=== PATIENT | female | born 1980 | race Two or more races ===

== ENCOUNTER 2016-11-20 12:00 | Inpatient (IN) | payer OTHER ==
[2016-11-20 16:17] VITALS: BMI 25.9
[2016-12-04] MEDS ORDERED: MIDAZOLAM HCL 2 MG/2 ML SINGLE DOSE VIAL ONE ×2 (11:11)
[2016-12-04] MEDS ORDERED: PROPOFOL 20 ML ONE ×3 (11:11)
[2016-12-04] MEDS ORDERED: EPINEPHrine/PF 1 MG/1 ML (1:1,000) AMPULE ONE (11:22)
[2016-12-04] MEDS ORDERED: LIDOCAINE HCL 1%, 10 MG/ML (20ML VIAL) ONE (11:22)
[2016-12-04] MEDS ORDERED: DEXAMETHASONE SOD PHOSPHATE/PF 10 MG/ML SDV ONE (11:22)
[2016-12-04] MEDS ORDERED: BUPIVACAINE HCL/PF 0.5% (5MG/ML) 10 ML VIAL ONE ×2 (11:23→12:26)
[2016-12-04] MEDS ORDERED: METHYLENE BLUE 1% 10 MG/1 ML VIAL ONE (11:30)
[2016-12-04] MEDS ORDERED: ROCURONIUM BROMIDE 50 MG/5 ML VIAL ONE (12:44)
[2016-12-04] MEDS ORDERED: ceFAZolin SODIUM 1 GM VIAL IVPB ONE (12:45)
[2016-12-04] MEDS ORDERED: METHYLENE BLUE 1% 10 MG/1 ML VIAL NR ONE (12:50)
[2016-12-04] MEDS ORDERED: HYDROmorphone HCL/PF 1 MG/ML VIAL (FOR PYXIS CHARGING ONLY) ONE ×2 (12:55→13:48)
[2016-12-04] MEDS ORDERED: DEXAMETHASONE SOD PHOSPHATE 4 MG/1 ML VIAL ONE (13:16)
[2016-12-04] MEDS ORDERED: ONDANSETRON 4 MG/2 ML VIAL IVPB PRN (15:11)
[2016-12-04] MEDS ORDERED: ACETAMINOPHEN 500 MG TABLET (FP) PO PRN (15:12)
[2016-12-04] MEDS ORDERED: OXYCODONE/APAP 5/325MG COMBO TABLET PO PRN ×2 (15:13→15:22)
[2016-12-04] MEDS ORDERED: HYDROmorphone *PCA* 10MG/50ML DISP.SYRIN PCA SCH ×3 (15:15→17:26)
[2016-12-04] MEDS ORDERED: PROMETHAZINE HCL 25 MG/1 ML VIAL IVPUSH PRN (17:08)
[2016-12-04] MEDS ORDERED: ONDANSETRON 4 MG/2 ML VIAL IVPUSH PRN ×2 (17:08)
[2016-12-04] MEDS ORDERED: PROMETHAZINE HCL 25 MG/1 ML VIAL IVPB PRN (17:08)
--- NOTE | 2016-12-04 17:20 | OP ---
Operative Note - Note: Operative Date: 12/04/16 Pre-Operative Diagnosis: Right Breast Ca Operation: Bilateral Immediate Breast Reconstruction after Bilateral Nipple- Sparing Mastectomies Implants: [place] Round Smooth Moderate Plus Profile Gel 350cc Left & Right Post-Operative Diagnosis: Same as Pre-op Surgeon: Praveen Taylor Anesthesia: General Operative Report Dictated: Yes
[2016-12-04] MEDS ORDERED: HYDROmorphone *PCA* 10MG/50ML DISP.SYRIN PCA ONE (17:45)
[2016-12-04] MEDS: CEPHALEXIN MONOHYDRATE 500 MG CAPSULE (UD) PO SCH (21:09)
[2016-12-04] MEDS: CEFAZOLIN (PRE-DOCKED) 50 ML IVPB SCH (21:10)
[2016-12-05] MEDS: LACTATED RINGERS SOLUTION 1,000 ML IV SCH (02:00)
[2016-12-05] MEDS: CEFAZOLIN (PRE-DOCKED) 50 ML IVPB SCH ×2 (05:36→13:00)
--- NOTE | 2016-12-05 06:39 | OP ---
DATE OF OPERATION: 12/04/2016 PREOPERATIVE DIAGNOSIS: Right breast cancer, BRCA2 positive. POSTOPERATIVE DIAGNOSIS: Right breast cancer, BRCA2 positive. PROCEDURE: Bilateral nipple-sparing mastectomy and right sentinel lymph node biopsy. SURGEON: Leann Barker MD DESK MONITOR: and medical student Tomás ANESTHESIA: General, paravertebral block. ANESTHESIOLOGIST: Apolonia Plummer MD ESTIMATED BLOOD LOSS: 100 mL. DRAINS: None. COMPLICATIONS: None. DISPOSITION: Stable at the end of the procedure. INDICATIONS: Patient had presented with a palpable lump in the upper outer right breast. On ultrasound and mammogram, this looked suspicious. She had a needle biopsy that showed an invasive carcinoma. I sent her for genetic testing given her young age and this came back as BRCA2 positive. We did an MRI as well and no other area was seen. However, given her genetic predisposition we discussed doing prophylactic mastectomy on the left and a mastectomy on the right. After much discussion, the decision was to go ahead with bilateral nipple-sparing mastectomy and a right sentinel node biopsy. She met with Dr. Taylor to discuss reconstruction. PROCEDURE IN DETAIL: Patient was brought to [facility] in [place] and taken down to Nuclear Medicine, where technetium level sulfur colloid was injected by the radiologist into the right breast and then brought up to the operating room. After paravertebral block she was brought into the operating room and after induction of general anesthesia and IV antibiotics 2.5 mL of methylene blue diluted with 2.5 mL of injectable saline was injected into the right subareolar plexus by me. The breast was then massaged for 5 minutes. Next, both breasts and axillae were prepped and draped in the usual sterile fashion. A 4-cm incision was made in the right axilla and carried down to the clavipectoral fascia to identify a bunch of lymph nodes together that were blue and hot. These were taken as right axillary sentinel node number 1, blue and hot, and sent for permanent section. There was no other blue dye radioactivity within the right axilla or pathologically significant lymph nodes. Therefore, once hemostasis was assured the right mastectomy was performed. An inframammary incision was made that was premarked by Dr. Taylor, and the superior flap was created up to the clavicle. The breast was then reflected off the muscle. Care was taken to preserve the nipple skin. This was tagged with a short stitch at the nipple and a long stitch at the lateral edge of the mastectomy. This was sent as the right mastectomy. I did take some of the tissue behind the right nipple and sharply incised it with a Metzenbaum scissor and this was sent to Pathology as tissue behind right nipple. Once hemostasis was assured and I was satisfied with the resection, then gowns, gloves, and instruments were changed and the left mastectomy was performed. Again, an inframammary incision was made and the flap was raised anteriorly superiorly to take the breast off the skin up to the clavicle. The breast was then reflected off the pectoralis muscle, leaving the nipple intact. The left mastectomy was tagged with a long stitch lateral and a short stitch at the nipple. This was sent to Pathology for permanent section. Hemostasis was assured with electrocautery. She tolerated the procedure well and left with Dr. Taylor to finish the reconstruction part of the procedure. Susan [id number]
--- NOTE | 2016-12-05 07:05 | OP ---
DATE OF OPERATION: 12/04/2016 PREOPERATIVE DIAGNOSIS: Right breast cancer. POSTOPERATIVE DIAGNOSIS: Right breast cancer. PROCEDURE PERFORMED: Bilateral immediate breast reconstruction after bilateral nipple-sparing mastectomies. SURGEON: Praveen Taylor MD ANESTHESIA: General. DESCRIPTION OF PROCEDURE: The patient was on the operating table at the conclusion of bilateral nipple-sparing mastectomies performed by Dr. Barker. These procedures were performed through bilateral inframammary incisions, which were marked with the patient in the standing position 1 day preoperatively. The right breast was addressed first, and the right subpectoral plane was created using electrocautery. Fiber Optic Lighted Retractor was used for assistance, and dissection continued superiorly up to the level of approximately the 2nd rib. The mastectomy dissection continued laterally beyond the anterior axillary line, so skin flap was sutured back in place to the lateral chest wall to prevent lateral migration of the implant. A medium-sized perforated Alloderm sheath was brought onto the field and soaked for approximately 5 minutes. After which, a straighter edge was sutured to the inferolateral border of the pectoralis major muscle, keeping the cut dermal side of the Alloderm facing superficially. The Alloderm was sutured in a continuous horizontal mattress fashion using 2-0 Vicryl suture to this superolateral edge. The implant selected was a [place] 350-mL Moderate Plus Profile gel implant, which was placed after gloves and gowns were changed. This was placed under the Alloderm and pectoralis major muscle layer, and the Alloderm was then reflected over the inferolateral portion of theimplant. The Alloderm was then trimmed to size and sutured to the inframammary fold using 2-0 Vicryl suture in interrupted horizontal mattress fashion. This was sutured around the lateral portion of the implant as well to restrict its lateral motion. Jozef-Aguero drain was inserted through a separate stab incision in the anterior axillary line and directed superiorly over the pectoralis major muscle within the mastectomy cavity. The drain was sutured in place with2-0 silk suture, and the inframammary wound was closed in layered fashion. Deep tissues were closed with No. 3-0 Biosyn suture in interrupted buried fashion, and skin was closed with a deep dermal layer of 4-0 V-Loc 90 suture. A similar procedure was performed on the left breast and a similar implant was selected. This implant was selected to be approximately 100 mL larger than the patients original breast volume. In addition to the right axillary incision that was used for sentinel node dissection was closed in layered fashion. Deep tissues were closed with No. 3-0 Biosyn suture in interrupted buried fashion, and skin was closed with No. 5-0 nylon suture in simple interrupted fashion. Wounds were then further secured with Steri-Strips, and sterile dressings were applied and secured with a surgical bra. The patient was then awoken from anesthesia without any difficulty and was taken from the operating room to the recovery room in satisfactory condition having tolerated the procedure well. Susan [id number] cc:: Leann Barker MD
--- NOTE | 2016-12-05 08:36 | PN ---
Progress Note (short form) - Note Progress Note: Anesthesia POD#1 S/P B/L mastectomy with reconstruction under GA and Pectoral Block,Dilaudid HOSPICE CONSULTANT VSS,pain is manageable,orals are started,no N/V,using HOSPICE CONSULTANT for few times. Decided to discontinue it and take oral pain meds. A/P Doing well. Discontinue HOSPICE CONSULTANT. Katia Peña..
[2016-12-05] MEDS: CEPHALEXIN MONOHYDRATE 500 MG CAPSULE (UD) PO SCH ×2 (09:05→21:19)
[2016-12-05] MEDS: oxyCODONE HCL 5 MG TABLET PO PRN ×3 (09:18→21:37)
[2016-12-05] MEDS: ACETAMINOPHEN 325 MG TABLET (FP) PO PRN ×3 (09:23→21:36)
--- NOTE | 2016-12-05 12:40 | PN ---
Progress Note (short form) - Note Progress Note: POD 1 s/p Bl mastectomy Doing well, Afebrile, VSS JPs- in place. functioning D/C [employer] SAL[employer]OCIATE ambulate plan discharge tomorrow
[2016-12-05] MEDS: DOCUSATE SODIUM 100 MG CAPSULE (FP) PO SCH (21:54)
[2016-12-06] MEDS: LACTATED RINGERS SOLUTION 1,000 ML IV SCH (04:37)
[2016-12-06 06:17] VITALS: BP 100/60; TEMP 98.4
[2016-12-06] MEDS: DOCUSATE SODIUM 100 MG CAPSULE (FP) PO SCH ×2 (06:23→13:48)
[2016-12-06] MEDS: oxyCODONE HCL 5 MG TABLET PO PRN ×2 (07:42→13:48)
[2016-12-06] MEDS: ACETAMINOPHEN 325 MG TABLET (FP) PO PRN ×2 (07:43→13:48)
[2016-12-06] MEDS: CEPHALEXIN MONOHYDRATE 500 MG CAPSULE (UD) PO SCH (11:30)
[2016-12-06 14:13] VITALS: PULSE 81
--- NOTE | 2016-12-09 08:18 | PATH ---
Surgical Pathology Report Patient Name: CARL RAHMAN [facility]. Rec. #: [id number] /Age/Gender: 1980 (Age: 36) / F Account: [id number] Location: [address] [place] [address] Taken: 12/04/2016 Received: 12/05/2016 Reported: 12/26/2016 Physicians: Leann Barker M.D. Specimen(s) Received A: RIGHT AXILLARY SENTINEL LYMPH NODE #1 B: RIGHT BREAST MASTECTOMY C: TISSUE BEHIND RIGHT NIPPLE D: LEFT BREAST MASTECTOMY Clinical History Right invasive, left prophylactic Final Diagnosis A. SENTINEL LYMPH NODE #1, RIGHT AXILLARY, BIOPSY: ONE OF THREE LYMPH NODES POSITIVE FOR METASTATIC CARCINOMA (1/3). SIZE OF LARGEST METASTATIC DEPOSITS: 0.6 CM. EXTRANODAL EXTENSION: NOT IDENTIFIED. B. BREAST, RIGHT, NIPPLE SPARING MASTECTOMY: MULTIFOCAL INVASIVE DUCTAL CARCINOMA WITH LOBULAR GROWTH PATTERN, MODERATELY DIFFERENTIATED (MIRTA HISTOLOGIC SCORE OF 7: TUBULAR FORMATION 3 OF 3; NUCLEAR PLEOMORPHISM 2 OF 2; MITOTIC RATE 2 OF 3). TUMOR FOCALITY AND SIZE: 4 FOCI; 1.3 CM, 1.2 CM, 0.5 CM, AND 0.3 CM; ALL FOCI ARE IN THE UPPER OUTER QUADRANT. FOCI OF DUCTAL CARCINOMA IN SITU (DCIS), INTERMEDIATE GRADE, SOLID AND CRIBRIFORM TYPES WITH FOCAL NECROSIS. DCIS EXTENT: DCIS IS MINOR (<25%); ASSOCIATED WITH INVASIVE CARCINOMA. SURGICAL RESECTION MARGINS: NEGATIVE FOR INVASIVE CARCINOMA OR DCIS; CLOSEST RESECTION MARGIN (ANTERIOR SOFT TISSUE) >1.0 CM AWAY FROM INVASIVE CARCINOMA OR DCIS. PRIOR BIOPSY SITE CHANGES IDENTIFIED. LYMPHOVASCULAR INVASION: PRESENT. PERINEURAL INVASION: NOT DEFINITIVELY IDENTIFIED. SURROUNDING BREAST TISSUE: FIBROCYSTIC CHANGE WITH FOCAL ADENOSIS, DUCT DILATATION, FOCAL CYST FORMATION AND STROMAL FIBROSIS WITH ASSOCIATED FOCAL MCROCALCIFICATIONS. PATHOLOGIC STAGING: mpT1c pN1a(sn) (ALSO REFER TO CHEKLIST BELOW). RECEPTOR STATUS: REFER TO CHECKLIST BELOW. Comment: Immunostain for e-cadherin was performed and interpreted on the prior biopsy ([id number], A and B) with the strong membranous staining in the tumor cells supporting ductal phenotype. C. TISSUE BEHIND RIGHT NIPPLE, BIOPSY: BENIGN BREAST TISSUE. D. BREAST, LEFT, PROPHYLACTIC NIPPLE SPARING MASTECTOMY: BENIGN BREAST TISSUE WITH FIBROCYSTIC CHANGE WITH FOCAL USUAL DUCT HYPERPLASIA, APOCRINE METAPLASIA AND STROMAL FIBROSIS. Comments Breast Invasive Carcinoma: Surgical Pathology Cancer Case Summary Based on AJCC/UICC TNM, 7th edition Procedure _x_ Nipple sparing mastectomy Lymph Node Sampling _x_ Cedar lymph nodes Specimen Laterality _x_ Right Tumor Size: Size of Largest Invasive Carcinoma Greatest dimension of largest focus of invasion over 1 mm: 1.3 cm Tumor Focality Multiple foci of invasive carcinoma Number of foci: 4 Sizes of individual foci: 1.3 cm, 1.2 cm, 0.5 cm, 0.3 cm Macroscopic and Microscopic Extent of Tumor Skin _x_ No skin present Nipple _x_ Not applicable (excisions less than total mastectomy) Skeletal Muscle _x_ No skeletal muscle present Ductal Carcinoma In Situ (DCIS) _x_ DCIS is present _x_ as a minor component (< 25% of tumor) Histologic Type of Invasive Carcinoma : _x_ Invasive ductal carcinoma with lobular growth pattern Histologic Grade: ([place] Histologic Score) Tubular Differentiation _x_ Score 3 Nuclear Pleomorphism _x_ Score 2 Mitotic Rate _x_ Score 2 Overall Grade _x_ Grade 2: scores of 6 or 7 (moderately differentiated) Margins _x_ Margins uninvolved by invasive carcinoma Distance from closest margin: >1.0 cm Specify margin: anterior soft tissue _x_ Margins uninvolved by DCIS Distance from closest margin: >1.0 cm Specify margin: anterior soft tissue Lymph-Vascular Invasion _x_ Present Lymph Nodes Total number of lymph nodes examined (sentinel and nonsentinel): 3 Number of sentinel lymph nodes examined: 3 Number of lymph nodes with macrometastases ( > 2 mm): 1 Number of lymph nodes with micrometastases (>0.2 mm to 2 mm and/or >200cells):0 Number of lymph nodes with isolated tumor cells (=0.2 mm and =200 cells): 0 Size of largest metastatic deposit (if present): 0.6 cm Extranodal Extension _x_ Not applicable Pathologic Staging (pTNM) Primary Tumor (Invasive Carcinoma): mpT1c Regional Lymph Nodes: pN1a(sn) Distant Metastasis (pM): not applicable Biomarker Studies Results of ER and IN studies performed on prior biopsy ([id number]) block A1 at [facility] are as follows: ER (clone [id number] mouse monoclonal antibody by [employer]): >95% nuclear staining with strong intensity (Positive). IN (clone16 mouse monoclonal antibody by [employer]): >95% nuclear staining with strong to moderate intensity (Positive). Results of Her2 (IHC) & Ki-67 studies performed on prior biopsy ([id number]) at [place], [place] () are as follows: Her2 IHC (EP3 from [employer], formerly known as [id number], using [employer] Polymer Refine detection kit): 1+ (Negative) Ki67: 15-20% ((intermediate proliferation index Positive and negative controls (internal if applicable) show appropriate results. Formalin fixation and cold ischemic times are within current ASCO/CAP recommendations for ER, IN and Her2 testing. Electronically Signed Conrad Ndiaye M.D. Gross Description A. Received in formalin, labeled "right axillary sentinel lymph node #1 hot and blue" is a 3.3 x 2.5 x 1.2 cm portion of yellow, lobulated adipose tissue. Sectioning reveals 3 peng blue, irregular lymph nodes ranging from 0.4 x 0.4 x 0.4 cm to 0.8 x 0.5 x 0.4 cm. The lymph nodes are entirely submitted in 3 cassettes as follows: 1-3-one whole bisected lymph node each. B. Received in formalin, labeled "right mastectomy" is a 364 gram, 16.0 x 13.0 x 3.0 cm right mastectomy specimen with a short suture marking the nipple and a long suture marking the lateral aspect of the specimen, per the surgeon. There is no skin or nipple present. The deep margin is inked black and the anterior soft tissue margin is inked blue. The specimen is serially sectioned from lateral to medial. Sectioning reveals a 1.2 x 0.8 x 0.7 cm peng, indurated mass in the upper outer quadrant (UOQ). The mass is at 1.0 cm from the anterior soft tissue margin and 1.3 cm from the deep margin. There is an additional, 1.1 x 0.7 x 0.4 cm focus of firm fibrous tissue in the upper outer quadrant (UOQ), separate from the mass. This focus is at 1.2 cm from the deep margin. The remaining breast parenchyma displays foci of dense white fibrous tissue. Electrician Master sections are submitted in 15 cassettes as follows: 1-2-one full face section each of UOQ mass with anterior soft tissue margin; 3-UOQ mass with deep margin; 4-uninvolved UOQ tissue; 5-6-7 separate UOQ focus of firm fibrous tissue with deep margin; 8-9-upper inner quadrant; 10-11-lower inner quadrant; 39-09-sddjgtgpoxmi tissue; 14-anterior soft tissue margin; 15-deep margin. Time to fixation: <1h Total formalin fixation time: ~24 hours C. Received in formalin, labeled "tissue behind right nipple" are 5 peng fragments of fibroadipose tissue ranging from 0.2-0.6 cm in greatest dimension. The specimens are submitted in toto in one cassette. D. Received in formalin, labeled "left mastectomy" is a 410 gram, 17.5 x 14.0 x 3.0 cm. left mastectomy specimen with a short suture marking the nipple and a long suture marking the lateral aspect of the specimen, per the surgeon. There is no skin or nipple present. The deep margin is inked black and the anterior soft tissue margin is inked blue. The specimen is serially sectioned from medial to lateral. Sectioning reveals multifocal dense white fibrous tissue. No definitive masses are identified. Electrician Master sections are submitted in 13 cassettes as follows: 1-2-upper outer quadrant; 3-4-lower outer quadrant; 5-6-upper inner quadrant; 7-9-lower inner quadrant; 59-04-xwkanenssybx tissue; 12-anterior soft tissue margin; 13-deep margin. Time to fixation: <1h Total formalin fixation time: ~24 hours 12/05/201612/05/2016
== END 2016-12-06 14:44 | disposition home or self-care (01) | DRG 362 ==
LOC: JSAMEDAYSX 12-04 05:07 → J6S 12-04 19:52
PROVIDERS: ADMIT Surgery; ATTEND Surgery
PROC: 0HTV0ZZ Resection of Bilateral Breast, Open Approach (ICD-10-PCS; principal; 2016-12-04 12:00)
PROC: 07B50ZX Excision of Right Axillary Lymphatic, Open Approach, Diagnostic (ICD-10-PCS; 2016-12-04 12:00)
PROC: 0HUV0JZ Supplement Bilateral Breast with Synthetic Substitute, Open Approach (ICD-10-PCS; 2016-12-04 12:00)
DX: C50.911 Malignant neoplasm of unspecified site of right female breast (principal)
CPT/HCPCS: 78195-TC; 84703; 88305-TC; 88307-TC; 94760; A9541

== ENCOUNTER 2017-01-16 07:49 | Day surgery (SDC) | payer OTHER ==
[2017-01-13 17:55] VITALS: BMI 25.9
[~2017-01-16 07:49] MED LIST: LIDOCAINE HCL 1%, 10 MG/ML (20ML VIAL) IJ ONE
[2017-01-16] MEDS ORDERED: LIDOCAINE HCL 1%, 10 MG/ML (20ML VIAL) ONE (09:18)
[2017-01-16] MEDS ORDERED: PROPOFOL 20 ML ONE (09:21)
[2017-01-16] MEDS ORDERED: MIDAZOLAM HCL 2 MG/2 ML SINGLE DOSE VIAL ONE (09:21)
[2017-01-16] MEDS ORDERED: ceFAZolin SODIUM 1 GM VIAL IVPB ONE (09:54)
[2017-01-16] MEDS ORDERED: ceFAZolin SODIUM 1 GM VIAL ONE (10:06)
[2017-01-16] MEDS ORDERED: DEXAMETHASONE SOD PHOSPHATE 4 MG/1 ML VIAL ONE (10:06)
[2017-01-16] MEDS ORDERED: oxyCODONE HCL 5 MG TABLET PO PRN (10:24)
[2017-01-16] MEDS ORDERED: IBUPROFEN 800 MG/8 ML IJ IVPB PRN (10:24)
[2017-01-16] MEDS ORDERED: ONDANSETRON 4 MG/2 ML VIAL IVPUSH PRN (10:24)
[2017-01-16] MEDS ORDERED: LACTATED RINGERS SOLUTION 1,000 ML IV SCH (10:30)
[2017-01-16] MEDS ORDERED: IBUPROFEN 800 MG/8 ML IJ IVPB ONE (11:01)
[2017-01-16 12:55] VITALS: TEMP 98.2
[2017-01-16 16:19] VITALS: BP 103/64; PULSE 72
--- NOTE | 2017-01-19 15:39 | PATH ---
Surgical Pathology Report Patient Name: CARL RAHMAN Med. Rec. #: [id number] /Age/Gender: 1980 (Age: 37) / F Account: [id number] Location: [facility] SUR[facility] Taken: 01/16/2017 Received: 01/16/2017 Reported: 01/19/2017 Physicians: Leann Barker M.D. Specimen(s) Received RIGHT AXILLARY CONTENTS Clinical History Right breast cancer Final Diagnosis LYMPH NODES, RIGHT AXILLARY CONTENTS, DISSECTION: 17 REACTIVE LYMPH NODES NEGATIVE FOR METASTATIC CARCINOMA (0/17). FAT NECROSIS AND FOCAL CHANGES CONSISTENT WITH PRIOR BIOPSY FOR SURGERY SITE IDENTIFIED. Comment: The lymph nodes show reactive follicular hyperplasia and dermatopathic lymphadenopathy. Immunohistochemical stain for Ae1/Ae3 performed and interpreted on block #3 at [facility] is negative supporting the interpretation above. Electronically Signed Conrad Ndiaye M.D. Gross Description Received in formalin labeled "right axillary contents," is a 6.0 x 4.8 x 1.0 cm aggregate of yellow, lobulated adipose tissue. Sectioning reveals multiple peng, irregular lymph nodes. The lymph nodes are entirely submitted in 7 cassettes as follows: 1-4-one whole bisected lymph node each; 8-6-apodtwvb lymph nodes. 01/16/201701/16/2017
--- NOTE | 2017-01-19 20:27 | OP ---
DATE OF OPERATION: 01/16/2017 PREOPERATIVE DIAGNOSIS: Right breast cancer with positive right axillary lymph node. POSTOPERATIVE DIAGNOSIS: Right breast cancer with positive right axillary lymph node. PROCEDURE: Right completion axillary node dissection. SURGEON: Leann Barker M.D. ANESTHESIA: General. ESTIMATED BLOOD LOSS: Minimal. COMPLICATIONS: None. DISPOSITION: Stable. INDICATION FOR PROCEDURE: patient had a bilateral nipple sparing mastectomy and a right central node biopsy that noted 1/3 positive lymph nodes. completion node dissection because of the positive lymph node and the lymph vascular invasion at mastectomy. The procedure was discussed with all the questions answered. PROCEDURE IN DETAIL: Patient brought to [facility] and after induction of general anesthesia and IV antibiotics, the right axilla was prepped and draped in the usual sterile fashion. The prior incision was sharply re-opened and the axilla was entered through the fascia. A completion lymph node dissection was performed. Care was taken to preserve the long thoracic and thoracodorsal neurovascular bundles. The entire axillary content was sent to pathology for permanent section as right axillary contents. Once hemostasis was assured with hemoclips and cautery, through a separate stab wound a 10-mm ANGEL drain was placed into the right axilla, secured to the skin with a nylon stitch. Once hemostasis was assured, the incision was closed in routine fashion with interrupted 2-0 Vicryl running 4-0 Biosyn. A sterile dressing with Tegaderm with 4x4s was applied as well as a mammary binder. She tolerated procedure well, was taken to recovery in good condition, extubated on the operating room table and then taken to recovery in good condition. Susan [id number]
== END 2017-01-16 16:00 | disposition home or self-care (01) ==
LOC: JASU-SURG 07:49
PROVIDERS: ATTEND Surgery
PROC: 07T50ZZ Resection of Right Axillary Lymphatic, Open Approach (ICD-10-PCS; principal; 2017-01-16 09:00)
DX: C50.911 Malignant neoplasm of unspecified site of right female breast (principal); R59.0 Localized enlarged lymph nodes
CPT/HCPCS: 84703; 88307-TC; 88342-TC; 94760

== ENCOUNTER 2018-10-01 16:10 | Emergency (ER) | payer OTHER ==
--- NOTE | 2018-10-01 16:28 | PDOC ---
Rapid Medical Evaluation Time Seen by Provider: 10/01/18 16:27 Medical Evaluation: Allergies Allergy/AdvReac Type Severity Reaction Status Date / Time No Known Drug Allergies Allergy Verified 10/01/18 16:26 10/01/18 16:27 I have performed a brief in-person evaluation of this patient. The patient presents with a chief complaint of:cough congestion 2 weeks . breast cancer 2 yrs ago with mastectomy. on tamoxifen. Pertinent physical exam findings:none I have ordered the following:none The patient will proceed to the ED for further evaluation. Discharge Disposition - Referrals Referrals: Rachael Montalvo [Primary Care Provider] - - Patient Instructions - Post Discharge Activity
[2018-10-01 16:30] VITALS: BP 100/50; PULSE 71; TEMP 98.2; BMI 24.9
--- NOTE | 2018-10-01 16:36 | PDOC ---
History of Present Illness - General Chief Complaint: Cold Symptoms Stated Complaint: Cold Symptoms Time Seen by Provider: 10/01/18 16:27 History Source: Patient Exam Limitations: No Limitations - History of Present Illness Initial Comments: 10/01/18 16:33 Best Contact: PCP:- Pmhx:2016: Right sided breast CA, currently on tamoxifen Pshx: 12/2017Bilateral mastectomy Allergies: NO KNOWN DRUG ALLERGIES Social Hx: Cigarettes/ denies Alcohol/ denies Drugs/denies 10/01/18 17:05 38-year-old female presents to the ER complaining of productive cough with greenish phlegm, subjective fever and chills 2 weeks without nausea/vomiting, diarrhea, headache, dizziness, lightheadedness, facial pains, rhinorrhea, nasal congestion, earache, sore throat, difficulty swallowing, neck pain/stiffness, back pains, chest pain, shortness of breath, abdominal pains, flank pains, urinary symptoms. Patient states she denied take anything for her symptoms. Patient is currently on tamoxifen for her right sided breast CA which was diagnosed 2 years ago and had a bilateral mastectomy on December 2017. Patient refuses any images Past History - Past Medical History Allergies/Adverse Reactions: Allergies Allergy/AdvReac Type Severity Reaction Status Date / Time No Known Drug Allergies Allergy Verified 10/01/18 16:26 Home Medications: Ambulatory Orders Tamoxifen Citrate 10 mg PO DAILY 10/01/18 Anemia: No Asthma: No Cancer: Yes (BREAST) Cardiac Disorders: No CVA: No COPD: No CHF: No Dementia: No Diabetes: No GI Disorders: No Disorders: No HTN: No Hypercholesterolemia: Yes (NO MEDS) Liver Disease: No Seizures: No Thyroid Disease: No - Surgical History Abdominal Surgery: No Appendectomy: No Cardiac Surgery: No Cholecystectomy: No Lung Surgery: No Neurologic Surgery: No Orthopedic Surgery: No - Suicide/Smoking/Psychosocial Hx Smoking Status: No Smoking History: Never smoked Have you smoked in the past 12 months: No Number of Cigarettes Smoked Daily: 0 Hx Alcohol Use: No Drug/Substance Use Hx: No Substance Use Type: None Hx Substance Use Treatment: No Review of Systems - Review of Systems Able to Perform ROS?: Yes Comments:: 10/01/18 16:34 CONSTITUTIONAL: +subjective fever, chills, Absent: diaphoresis, generalized weakness, malaise, loss of appetite HEENT: Absent: rhinorrhea, nasal congestion, throat pain, throat swelling, difficulty swallowing, mouth swelling, ear pain, eye pain, visual Changes CARDIOVASCULAR: Absent: chest pain, loss of consciousness, palpitations, irregular heart rate, peripheral edema RESPIRATORY: +cough Absent:shortness of breath, dyspnea with exertion, orthopnea, wheezing, stridor , hemoptysis GASTROINTESTINAL: Absent: abdominal pain, abdominal distension, nausea, vomiting, diarrhea, constipation, melena, hematochezia GENITOURINARY: Absent: dysuria, frequency, urgency, hesitancy, hematuria, flank pain, genital pain MUSCULOSKELETAL: Absent: myalgia, arthralgia, joint swelling SKIN: Absent: rash, itching, pallor HEMATOLOGIC/IMMUNOLOGIC: Absent: easy bleeding, easy bruising, lymphadenopathy, frequent infections ENDOCRINE: Absent: unexplained weight gain, unexplained weight loss, heat intolerance, cold intolerance NEUROLOGIC: Absent: headache, focal weakness or paresthesias, dizziness, unsteady gait, seizure, mental status changes, bladder or bowel incontinence Is the patient limited Kazakh proficient: No *Physical Exam - Vital Signs Last Vital Signs Temp Pulse Resp BP Pulse Ox 98.2 F 71 18 100/50 L 99 10/01/18 16:28 10/01/18 16:28 10/01/18 16:28 10/01/18 16:28 10/01/18 16:28 - Physical Exam Comments: 10/01/18 16:35 GENERAL: Well developed, well nourished. Awake and alert. No acute distress. HEENT: Normocephalic, atraumatic. PERRLA, EOMI. No conjunctival pallor. Sclera are non- icteric. Moist mucous membranes. Oropharynx is clear. NECK: Supple. Full ROM. No JVD. Carotid pulses 2+ and symmetric, without bruits. No thyromegaly. No lymphadenopathy. CARDIOVASCULAR: Regular rate and rhythm. No murmurs, rubs, or gallops. Distal pulses are 2+ and symmetric. PULMONARY: No evidence of respiratory distress. Lungs clear to auscultation bilaterally. No wheezing, rales or rhonchi. ABDOMINAL: Soft. Non-tender. Non-distended. No rebound or guarding. No organomegaly. Normoactive bowel sounds. MUSCULOSKELETAL Normal range of motion at all joints. No bony deformities or tenderness. No CVA tenderness. EXTREMITIES: No cyanosis. No clubbing. No edema. No calf tenderness. SKIN: Warm and dry. Normal capillary refill. No rashes. No jaundice. NEUROLOGICAL: Alert, awake, appropriate. Cranial nerves 2-12 intact. No deficits to light touch and temperature in face, upper extremities and lower extremities. No motor deficits in the in face, upper extremities and lower extremities. Normoreflexic in the upper and lower extremities. Normal speech. Toes are down- going bilaterally. Gait is normal without ataxia. PSYCHIATRIC: Cooperative. Good eye contact. Appropriate mood and affect. Moderate Sedation - Procedure Monitoring Vital Signs: Procedure Monitoring Vital Signs Temperature 98.2 F 10/01/18 16:28 Pulse Rate 71 10/01/18 16:28 Respiratory Rate 18 10/01/18 16:28 Blood Pressure 100/50 L 10/01/18 16:28 O2 Sat by Pulse Oximetry (%) 99 10/01/18 16:28 ED Treatment Course - RADIOLOGY Radiograph Interpretation: 10/01/18 16:35 CXR: 2V *DC/Admit/Observation/Transfer Diagnosis at time of Disposition: Viral syndrome - Discharge Dispostion Disposition: HOME Condition at time of disposition: Stable Decision to Admit order: No - Referrals Referrals: Rachael Montalvo [Primary Care Provider] - - Patient Instructions Printed Discharge Instructions: DI for Viral Upper Respiratory Infection -- Adult Additional Instructions: Increase fluids It is important for you to actually take your temperature to see if you have a fever Tylenol alternating with Motrin every 6 hours as needed for pain or fever Follow with your doctor next week Return to the ER for severe/persistent or worsening symptoms Since you do not want to get a chest x-ray, I will send a prescription to your pharmacy. If the symptoms gets worse, he can start taking the antibiotics. - Post Discharge Activity
[2018-10-01] MEDS ORDERED: KETOROLAC TROMETHAMINE 60 MG/2 ML VIAL IM ONE (16:42)
== END 2018-10-01 17:17 | disposition home or self-care (01) ==
LOC: JERFT 16:10
DX: B97.89 Other viral agents as the cause of diseases classified elsewhere (principal); J06.9 Acute upper respiratory infection, unspecified; Z85.3 Personal history of malignant neoplasm of breast; Z90.13 Acquired absence of bilateral breasts and nipples
CPT/HCPCS: 99281-25

== ENCOUNTER 2023-01-19 10:50 | Emergency (ER) | payer OTHER ==
[2023-01-19 11:01] VITALS: BMI 24.7
[2023-01-19] MEDS ORDERED: ONDANSETRON 4 MG/2 ML VIAL IVPUSH ONE (11:43)
[2023-01-19] MEDS ORDERED: SODIUM CHLORIDE 0.9% 1000 ML INFUS.BAG IV ONE (11:43)
[2023-01-19] MEDS ORDERED: ACETAMINOPHEN 1000 MG/100 ML BAG IVPB ONE (11:43)
[2023-01-19] MEDS ORDERED: FAMOTIDINE 20 MG/50 ML IVPB 20 MG/50 ML MG IVPB ONE ×2 (11:43→12:13)
[2023-01-19] MEDS ORDERED: ACETAMINOPHEN INJECTION 100 ML IVPB ONE (12:12)
[2023-01-19] MEDS ORDERED: ONDANSETRON 4 MG/2 ML VIAL ONE (12:12)
[2023-01-19 12:13] LABS: BASO % 1.3 % (0-2.0); EOS % 0.9 % (0-4.5); HEMATOCRIT 39.4 % (32.4-45.2); HEMOGLOBIN 14.1 GM/dL (10.7-15.3); LYMPH % 19.7 % (8-40); MCH 32.3 pg (25.7-33.7); MCHC 35.8 g/dl (32.0-36.0); MEAN CELL VOLUME 90.2 fl (80-96); MEAN PLT VOLUME 8.1 fl (7.5-11.1); MONO % 6.2 % (3.8-10.2); NEUT % 71.9 % (42.8-82.8); PLATELET COUNT 251 10^3/uL (134-434); RBC 4.36 M/mm3 (3.60-5.2)
[2023-01-19 12:29] LABS: ACTIVATED PTT 30.5 SECONDS (25.2-36.5); INR 1.13 (0.83-1.09); PROTHROMBIN TIME (PATIENT) 13.1 SEC (9.7-13.0)
[2023-01-19 12:39] LABS: ALBUMIN 3.8 g/dl (3.4-5.0); BLOOD UREA NITROGEN 15.9 mg/dL (7-18); CALCIUM 9.4 mg/dL (8.5-10.1)
[2023-01-19 12:42] LABS: CREATININE 0.5 mg/dL (0.55-1.3)
[2023-01-19 12:44] LABS: TOT PROT 7.8 g/dl (6.4-8.2)
[2023-01-19] MEDS ORDERED: LACTATED RINGERS SOLUTION 1000 ML INFUS.BAG IV ONE ×2 (13:30→13:31)
[2023-01-19 14:28] LABS: EPI CELLS 24 /uL (0-25.1); HYALINE CASTS 3 /uL (0-3.1); URINE APPEARANCE CLEAR; URINE BACTERIA 40 /uL (0-1359); URINE BILIRUBIN 1+ (NEGATIVE); URINE COLOR DK YELLOW; URINE GLUCOSE (UA) NEGATIVE (NEGATIVE); URINE KETONE 3+ (NEGATIVE); URINE LEUK ESTERASE NEGATIVE (NEGATIVE); URINE NITRITE NEGATIVE (NEGATIVE); URINE PROTEIN 1+ (NEGATIVE); URINE RBC 44 /uL (0-23.9); URINE WBC 39 /uL (0-25.8)
[2023-01-19] MEDS ORDERED: AMOX TR/POT CLAV 875MG/125MG TABLETS (FP) PO ONE (14:37)
[2023-01-19] MEDS ORDERED: AMOX TR/POT CLAV 875MG/125MG TABLETS (FP) ONE (14:44)
[2023-01-19 15:55] VITALS: BP 113/60; PULSE 68; RESP 16; TEMP 98.5
== END 2023-01-19 15:47 | disposition home or self-care (01) ==
LOC: JER 10:50
PROC: 3E033GC Introduction of Other Therapeutic Substance into Peripheral Vein, Percutaneous Approach (ICD-10-PCS; principal; 2023-01-19)
PROC: 3E033NZ Introduction of Analgesics, Hypnotics, Sedatives into Peripheral Vein, Percutaneous Approach (ICD-10-PCS; 2023-01-19)
PROC: 3E033GC Introduction of Other Therapeutic Substance into Peripheral Vein, Percutaneous Approach (ICD-10-PCS; 2023-01-19)
DX: K52.9 Noninfective gastroenteritis and colitis, unspecified (principal); Z20.822 Contact with and (suspected) exposure to COVID-19
CPT/HCPCS: 0241U-QW; 36415; 74177-TC; 80053; 81003; 85025; 85610; 85730; 87086; 96365; 96375; 99285-25; Q9967

== ENCOUNTER → 2024-03-16 | Day surgery (SDC) | payer OTHER | END | disposition home or self-care (01) | LOC: JRADUS-SUR 10:27 | PROVIDERS: ATTEND Internal Medicine Hematology & Oncology | PROC: 07D63ZX Extraction of Left Axillary Lymphatic, Percutaneous Approach, Diagnostic (ICD-10-PCS; principal; 2024-03-16) | DX: R59.0 Localized enlarged lymph nodes (principal); Z85.3 Personal history of malignant neoplasm of breast | CPT/HCPCS: 19083; 87899; 88305-TC; 88342-TC; A4648 ==

== ENCOUNTER 2024-04-24 20:34 | Emergency (ER) | payer OTHER ==
[2024-04-24 20:41] VITALS: BP 100/61; PULSE 82; RESP 20; TEMP 98.4; BMI 26.4
[2024-04-24] MEDS ORDERED: IBUPROFEN 600 MG TABLET (FP) PO ONE (20:54)
[2024-04-24] MEDS ORDERED: ACETAMINOPHEN 500 MG TABLET (FP) ONE (20:54)
[2024-04-24] MEDS: IBUPROFEN 600 MG TABLET (FP) PO ONE (20:57)
[2024-04-24] MEDS: ACETAMINOPHEN 500 MG TABLET (FP) PO ONE (20:57)
== END 2024-04-25 02:07 | disposition home or self-care (01) ==
LOC: JER 20:34
PROC: 2W3QX1Z Immobilization of Right Lower Leg using Splint (ICD-10-PCS; principal; 2024-04-24)
DX: S82.52XA Displaced fracture of medial malleolus of left tibia, initial encounter for closed fracture (principal); W10.0XXA Fall (on)(from) escalator, initial encounter
CPT/HCPCS: 73610-TC-RT-FY; 73630-TC-RT-FY; 99283-25

== ENCOUNTER 2025-02-17 15:15 | Observation (INO) | payer OTHER ==
[2025-02-17] MEDS ORDERED: ACETAMINOPHEN INJECTION 100 ML ONE (16:55)
[2025-02-17] MEDS ORDERED: FAMOTIDINE 20 MG/50 ML IVPB 20 MG/50 ML MG IVPB ONE (16:55)
[2025-02-17 17:21] LABS: ABSOLUTE IMMATURE GRANULOCYTES 0.04 x10^3/uL (0.0-0.031); BASOPHILS # 0.05 x10^3/uL (0.01-0.08); EOSINOPHIL % 0.5 % (0.7-5.8); EOSINOPHILS # 0.05 x10^3/uL (0.04-0.36); HEMATOCRIT 42.8 % (34.1-44.9); HEMOGLOBIN 14.3 g/dL (11.2-15.7); MCHC 33.4 g/dl (32.2-35.5); MEAN CELL VOLUME 91.3 fl (79.4-94.8); MEAN PLT VOLUME 9.1 fl (9.4-12.3); MONOCYTE # 0.83 x10^3/uL (0.24-0.86); MONOCYTE % 7.5 % (4.7-12.5); PLATELET COUNT 269 x10^3/uL (182-369); RDW 12.4 % (12.2-17.1)
[2025-02-17 17:26] LABS: EPI CELLS 5 /uL (0-25.1); HYALINE CASTS 0 /uL (0-3.1); URINE APPEARANCE Error; URINE BACTERIA 11 /uL (0-1359); URINE BILIRUBIN NEGATIVE (NEGATIVE); URINE COLOR YELLOW; URINE GLUCOSE (UA) NEGATIVE (NEGATIVE); URINE KETONE 3+ (NEGATIVE); URINE LEUK ESTERASE NEGATIVE (NEGATIVE); URINE NITRITE NEGATIVE (NEGATIVE); URINE PROTEIN NEGATIVE (NEGATIVE); URINE RBC 22 /uL (0-23.9); URINE UROBILINOGEN 0.2 mg/dL (0.2-1.0); URINE WBC 6 /uL (0-25.8)
[2025-02-17] MEDS: SODIUM CHLORIDE 0.9% 500 ML INFUS.BAG IV ONE ×2 (17:34→21:45)
[2025-02-17] MEDS: ACETAMINOPHEN 1000 MG/100 ML BAG IVPB ONE (17:34)
[2025-02-17] MEDS: FAMOTIDINE 20 MG/50 ML IVPB 20 MG/50 ML MG IVPB ONE (17:35)
[2025-02-17 17:42] LABS: POTASSIUM 4.2 mmol/L (3.5-5.1)
[2025-02-17 17:44] LABS: BLOOD UREA NITROGEN 13.2 mg/dL (7-18); CALCIUM 9.5 mg/dL (8.5-10.1)
[2025-02-17 17:45] LABS: ALBUMIN 3.8 g/dl (3.4-5.0)
[2025-02-17 17:48] LABS: CREATININE 0.6 mg/dL (0.55-1.3)
[2025-02-17 17:49] LABS: BILIRUBIN,TOTAL 1.5 mg/dL (0.2-1); TOT PROT 7.8 g/dl (6.4-8.2)
[2025-02-17 18:38] LABS: HIV INTERPRETATION NEGATIVE (NEGATIVE)
[2025-02-17 18:39] LABS: HCV DIAGNOSTIC IN-HOUSE W/RFLX NON-REACTIVE (NONREACTIVE)
[2025-02-17] MEDS ORDERED: PIPERACILLIN/TAZOB 3.375 GM 3.375 GM/50 ML BAG IVPB ONE (21:34)
[2025-02-17] MEDS: PIPERACILLIN/TAZOB 3.375 GM 3.375 GM in DEXTROSE 5%-WATER - 50 ML IVPB ONE (21:45)
[2025-02-17] MEDS ORDERED: ACETAMINOPHEN 1000 MG/100 ML BAG IVPB PRN (22:45)
[2025-02-18 00:33] VITALS: BMI 26.2
[2025-02-18] MEDS: PIPERACILLIN/TAZOB 3.375 GM 3.375 GM in DEXTROSE 5%-WATER - 50 ML IVPB SCH (02:32)
[2025-02-18] MEDS ORDERED: PIPERACILLIN/TAZOB 3.375 GM 3.375 GM in DEXTROSE 5%-WATER - 50 ML IVPB SCH (03:00)
[2025-02-18] MEDS: HEPARIN NA (PORCINE) 5,000 UNITS/ML 1ML VIAL SQ SCH (06:10)
[2025-02-18 08:38] LABS: ABSOLUTE IMMATURE GRANULOCYTES 0.01 x10^3/uL (0.0-0.031); BASOPHILS # 0.04 x10^3/uL (0.01-0.08); EOSINOPHIL % 1.6 % (0.7-5.8); EOSINOPHILS # 0.11 x10^3/uL (0.04-0.36); HEMATOCRIT 37.5 % (34.1-44.9); HEMOGLOBIN 12.3 g/dL (11.2-15.7); MCHC 32.8 g/dl (32.2-35.5); MEAN CELL VOLUME 93.1 fl (79.4-94.8); MEAN PLT VOLUME 9.7 fl (9.4-12.3); MONOCYTE # 0.57 x10^3/uL (0.24-0.86); MONOCYTE % 8.3 % (4.7-12.5); PLATELET COUNT 249 x10^3/uL (182-369); RDW 12.1 % (12.2-17.1)
[2025-02-18 09:05] LABS: POTASSIUM 4.1 mmol/L (3.5-5.1)
[2025-02-18 09:12] LABS: CALCIUM 8.7 mg/dL (8.5-10.1)
[2025-02-18 09:15] LABS: BILIRUBIN,TOTAL 1.7 mg/dL (0.2-1); CREATININE 0.5 mg/dL (0.55-1.3)
[2025-02-18 09:16] LABS: PHOSPHOROUS 3.7 mg/dL (2.5-4.9)
[2025-02-18 09:17] LABS: TOT PROT 6.1 g/dl (6.4-8.2)
[2025-02-19 06:02] VITALS: RESP 18
[2025-02-19 09:11] LABS: HEMOGLOBIN 13.2 g/dL (11.2-15.7); MCHC 33.8 g/dl (32.2-35.5); MEAN CELL VOLUME 90.9 fl (79.4-94.8); MEAN PLT VOLUME 9.6 fl (9.4-12.3); PLATELET COUNT 284 x10^3/uL (182-369)
[2025-02-19 09:35] LABS: CALCIUM 9.4 mg/dL (8.5-10.1)
[2025-02-19 09:39] LABS: ALBUMIN 3.2 g/dl (3.4-5.0); CREATININE 0.6 mg/dL (0.55-1.3)
[2025-02-19 09:40] LABS: BILIRUBIN,TOTAL 1.4 mg/dL (0.2-1)
[2025-02-19 14:13] VITALS: BP 97/55; PULSE 66; TEMP 98.8
== END 2025-02-19 16:52 | disposition home or self-care (01) ==
LOC: JER 15:15 → JERBED 21:17 → INTOOBSV 21:17 → J8W 23:01
PROVIDERS: ADMIT Student in an Organized Health Care Education/Training Program; ATTEND Registered Nurse
PROC: 3E033GC Introduction of Other Therapeutic Substance into Peripheral Vein, Percutaneous Approach (ICD-10-PCS; principal; 2025-02-17)
PROC: 3E033NZ Introduction of Analgesics, Hypnotics, Sedatives into Peripheral Vein, Percutaneous Approach (ICD-10-PCS; 2025-02-17)
PROC: 3E023GC Introduction of Other Therapeutic Substance into Muscle, Percutaneous Approach (ICD-10-PCS; 2025-02-17)
PROC: 3E0337Z Introduction of Electrolytic and Water Balance Substance into Peripheral Vein, Percutaneous Approach (ICD-10-PCS; 2025-02-17)
DX: K57.92 Diverticulitis of intestine, part unspecified, without perforation or abscess without bleeding (principal); Z85.3 Personal history of malignant neoplasm of breast; Z90.10 Acquired absence of unspecified breast and nipple
CPT/HCPCS: 0241U-QW; 36415; 74177-TC; 80053; 81003; 82962; 83036; 83690; 83735; 84100; 85025; 85027; 86803; 87086; 87389; 96365; 96366; 96367; 96368; 96372; 96375; 99285-25; G0378; J0131; J1644; Q9967